=== PATIENT | female | born 1980 | race Caucasian/White ===

== ENCOUNTER 2019-11-01 23:38 | Observation (INO) ==
[2019-11-02] MEDS ORDERED: Ondansetron 4 MG/2 ML VIAL IVP PRN ×2 (01:26→16:54)
[2019-11-02] MEDS ORDERED: 0.9 % Sodium Chloride 1,000 ML IVC SCH (01:30)
[2019-11-02 04:33] LABS: Hematocrit 38.3 % (35.3-44.9); Hemoglobin 12.6 g/dL (11.5-15.4); Mean Corpuscular HGB Conc 32.9 g/dL (31.6-35.5); Mean Corpuscular Hemoglobin 31.5 pg (28.0-33.3); Mean Corpuscular Volume 95.8 fL (83.0-100.0); Platelet Count 274 K/mcL (140-400); Red Cell Distribution Width 13.1 % (11.5-14.5); White Blood Count 10.8 K/mcL (4.3-11.1)
[2019-11-02] MEDS: Ketorolac 30 MG/ML VIAL IVP SCH ×4 (05:16→22:16)
[2019-11-02] MEDS ORDERED: Piperacillin/Tazobactam 3.375 GM in 0.9 % Sodium Chloride Mini Bag 100 ML IVPB SCH (08:00)
[2019-11-02] MEDS ORDERED: Pantoprazole 40 MG VIAL IVP SCH (09:00)
[2019-11-02] MEDS ORDERED: *HR* HYDROmorphone (PF) 1 MG/ML SYRINGE IVP PRN ×2 (11:31→16:54)
[2019-11-02] MEDS ORDERED: *HR* FentaNYL (PF) 100 MCG/2 ML VIAL ONE (12:44)
[2019-11-02] MEDS ORDERED: *HR* Midazolam HCl 2 MG/2 ML VIAL ONE (12:44)
[2019-11-02] MEDS ORDERED: Ondansetron 4 MG/2 ML VIAL ONE (12:45)
[2019-11-02] MEDS ORDERED: Dexamethasone 4 MG/ML VIAL ONE (12:45)
[2019-11-02] MEDS ORDERED: Lidocaine -MPF 2% 2 ML VIAL ONE (12:45)
[2019-11-02] MEDS ORDERED: *HR* Propofol 200 MG/20 ML VIAL IVP ONE (12:45)
[2019-11-02] MEDS ORDERED: Lidocaine HCL 4 ML Topical Solution (Laryng-O-Jet Kit Sterile Pak) TP ONE (12:45)
[2019-11-02] MEDS ORDERED: *HR* Rocuronium Bromide 50 MG/5 ML VIAL ONE (12:45)
[2019-11-02] MEDS ORDERED: Albuterol 2.5 MG/3 ML NEBULIZER ONE (13:15)
[2019-11-02] MEDS ORDERED: Albuterol 2.5 MG/3 ML NEBULIZER IH ONE (13:18)
[2019-11-02] MEDS ORDERED: Bupivacaine/EPI 1:200k 0.5%PF 30 ML VIAL ONE (14:02)
[2019-11-02] MEDS ORDERED: Ketorolac 30 MG/ML VIAL ONE (14:37)
[2019-11-02] MEDS ORDERED: Neostigmine Methylsulfate 3 MG/3 ML SYRINGE ONE ×2 (14:37→14:52)
[2019-11-02] MEDS ORDERED: Acetaminophen IV 1,000 MG/100 ML INFUS..BTL ONE (14:38)
[2019-11-02] MEDS ORDERED: *HR* HYDROMORPHONE 2 MG/ML VIAL ONE (14:40)
[2019-11-02] MEDS ORDERED: *HR* OxyCODONE Immed Rel 5 MG TABLET PO PRN (16:54)
[2019-11-02] MEDS: *HR* Heparin 5,000 UNIT/ML VIAL SQ SCH (17:33)
[2019-11-02] MEDS: Acetaminophen IV 1,000 MG/100 ML INFUS..BTL IVPB SCH ×2 (17:33→23:09)
[2019-11-02] MEDS ORDERED: *HR* Heparin 5,000 UNIT/ML VIAL SQ SCH (18:00)
[2019-11-02] MEDS: 0.9 % Sodium Chloride 1,000 ML IVC SCH (21:35)
[2019-11-02] MEDS: Piperacillin/Tazobactam 3.375 GM in 0.9 % Sodium Chloride Mini Bag 100 ML IVPB SCH (23:29)
[2019-11-03] MEDS: Ketorolac 30 MG/ML VIAL IVP SCH (04:28)
[2019-11-03] MEDS: *HR* Heparin 5,000 UNIT/ML VIAL SQ SCH (05:49)
[2019-11-03] MEDS: Acetaminophen IV 1,000 MG/100 ML INFUS..BTL IVPB SCH (05:49)
[2019-11-03 05:56] LABS: Basophils % 0.1 %; Eosinophils % 0.1 %; Hematocrit 35.8 % (35.3-44.9); Hemoglobin 11.8 g/dL (11.5-15.4); Immature Granulocytes % 0.2 % (0-4); Lymphocytes # 1.2 K/mcL (0.6-4.6); Lymphocytes % 9.4 %; Mean Corpuscular Hemoglobin 31.7 pg (28.0-33.3); Mean Corpuscular Volume 96.2 fL (83.0-100.0); Mean Platelet Volume 10.5 fL (9.4-12.4); Monocytes # 0.8 K/mcL (0.0-1.3); Monocytes % 6.8 %; Neutrophils # 10.3 K/mcL (1.6-8.9); Platelet Count 248 K/mcL (140-400); Red Blood Count 3.72 M/mcL (3.82-4.97); Red Cell Distribution Width 12.9 % (11.5-14.5); Segmented Neutrophils % 83.4 %; White Blood Count 12.3 K/mcL (4.3-11.1)
[2019-11-03 07:21] VITALS: BP 104/67
[2019-11-03] MEDS: 0.9 % Sodium Chloride 1,000 ML IVC SCH (07:29)
[2019-11-03] MEDS ORDERED: Pantoprazole 40 MG VIAL IVP SCH (09:00)
[2019-11-03] MEDS: Piperacillin/Tazobactam 3.375 GM in 0.9 % Sodium Chloride Mini Bag 100 ML IVPB SCH (09:49)
== END 2019-11-03 11:21 | disposition home or self-care (01) ==
LOC: 3ANU
PROVIDERS: ADMIT Surgery; ATTEND Surgery